=== PATIENT | female | born 1950 | race Two or more races ===

== ENCOUNTER 2024-08-25 06:37 | Day surgery (SDC) | payer MEDICARE, BC, SELFPAY ==
[2024-08-22 11:24] LABS: Basophils # (Auto) 0.1 Thou/mm3 (0.0-0.2); Basophils % (Auto) 1 % (0-2.5); Eosinophils # (Auto) 0.1 Thou/mm3 (0.0-0.5); Eosinophils % (Auto) 1 % (0-10); Hematocrit 37.7 % (36.0-46.0); Hemoglobin 12.9 g/dL (12.0-16.0); Immature Granulocytes % (Auto) 0 % (0-0); Immature Granulocytes Auto 0.04 Thou/mm3 (0.00-0.00); Lymphocytes # (Auto) 3.1 Thou/mm3 (1.0-4.8); Lymphocytes % (Auto) 28 % (10-50); Mean Corpuscular HGB Conc 34.2 g/dl (31.0-37.0); Mean Corpuscular Hemoglobin 30.5 pg (25.0-35.0); Mean Corpuscular Volume 89 fL (80-100); Monocytes # (Auto) 0.6 Thou/mm3 (0.0-0.8); Monocytes % (Auto) 5 % (0-12); Neutrophils # (Auto) 7.1 Thou/mm3 (1.8-7.7); Neutrophils % (Auto) 65 % (37-80); Nucleated Red Blood Cell % 0 /100 WBC (0); Platelet Count 225 Thou/mm3 (140-440); RDW Standard Deviation 48.8 fL (36.4-46.3); Red Blood Count 4.23 Miln/mm3 (4.00-5.20)
[2024-08-22 11:33] LABS: Partial Thromboplastin Time 27.9 Seconds (22.0-36.0); Prothrombin Time 11.1 Seconds (9.0-12.2)
[2024-08-22 11:35] LABS: Anion Gap 8 (7-16); BUN/Creatinine Ratio 15 Ratio (12-20); Blood Urea Nitrogen 12 mg/dL (9-23); Calcium 9.5 mg/dL (8.3-10.6); Carbon Dioxide 28.8 mMol/L (20.0-31.0); Chloride 104 mMol/L (98-107); Creatinine (Component) 0.8 mg/dL (0.6-1.3); Glucose 110 mg/dL (74-106); Osmolality,Calculated 281 (275-295); Potassium 3.2 mMol/L (3.4-5.1); Sodium 141 mMol/L (136-145); eGFR > 60 See Note
[2024-08-25] VITALS (17 sets, daily range): BP systolic 111–165; BP diastolic 62–77; PULSE 59–74; RESP 10–21; TEMP 36.1–36.3; O2SAT 92–97; BMI 28.3
--- NOTE | 2024-08-25 16:17 | ESOP_ITS ---
RE: STEPHEN PRINCE : 1950 DATE OF OPERATION: 08/25/2024 REFERRING PHYSICIAN: Dr. Fatima PROCEDURES PERFORMED: 1. Left heart catheterization. 2. LV angiography. 3. Selective left and right coronary angiography. 4. Selective right femoral arterial angiography. 5. Conscious sedation monitoring. INDICATIONS FOR PROCEDURE: The patient with history of chronic hypertension, history of hyperlipidemia, history of arteriosclerotic heart disease with previous history of multivessel intracoronary stent placement in 2018 and recent recurrence of the symptoms of anginal chest pains and positive adenosine stress Cardiolite myocardial perfusion imaging study. DETAILS OF THE PROCEDURE: After explaining the procedure in detail to the patient and after obtaining a proper consent, patient was given 1 mg of intravenous Versed and 50 mcg of intravenous fentanyl as premedication. The right groin area was prepped with antiseptic solution. Local anesthetic 2% lidocaine was used and right femoral artery was punctured by Seldinger technique and a Hemoclip sheath size 6-[place] was put in the right femoral artery. Through the sheath, a pigtail catheter size 6-[place] was advanced and positioned in the ascending aorta. Aortic pressure was recorded and catheter placed across the aortic valve into the left ventricle. Left ventricular pressure recorded and LV angiography was performed in GONZALEZ view using 36 mL of dye at a rate of 12 mL per second over a period of 3 seconds. After the left ventricular angiography, the pullback pressure recorded from left ventricle into the aorta. The pigtail catheter was exchanged with preformed left coronary Ricardo catheter size 6-Central African JL4, which was advanced with the help of a J-wire and tip positioned over the left coronary ostium. Several views of the left coronary artery were taken and after left coronary angiography, the catheter was exchanged with preformed right coronary Ricardo catheter size 6-[place] African JR4, which was advanced with the help of a J-wire and tip positioned over the right coronary ostium. Three views of the right coronary artery were taken and after the right coronary angiography, the catheter was pulled out and right femoral arterial angiography was performed in GONZALEZ as well as in NAURUAN views as the arterial puncture site was below the bifurcation of the right common femoral artery. Local pressure was applied to obtain hemostasis of the right femoral arterial puncture site. The patient tolerated the procedure very well without any complication. RESULTS OF THE PROCEDURE: The hemodynamic data showed aortic pressure 165/60 with a mean of 103. Left ventricular pressure 164/12. Post-angiography, left ventricular pressure 160/20. There is no gradient noted across the aortic valve on pullback pressure. The left ventricular angiography showed normal-sized left ventricle with normal left ventricular systolic function and left ventricular ejection fraction of 60%. No evidence of segmental left ventricular wall motion abnormalities were noted. No evidence of mitral regurgitation is noted. The coronary angiography showed left main coronary artery is normal. The left anterior descending coronary artery showed patent previously stented site in the mid left anterior descending coronary artery without any residual stenosis. The diagonal and septal branches are normal. Good distal flow in the left anterior descending coronary artery is noted. The left circumflex coronary artery showed patent previously stented midportion without any residual narrowing and good distal flow. The right coronary angiography showed eccentric luminal narrowing in its proximal and midportion with 20% stenosis and patent previously stented mid to distal right coronary artery before the region of the posterior descending branch without any residual stenosis. Good distal flow in the posterior descending branch and LV posterolateral branch of the right coronary artery is noted. The right femoral arterial angiography is normal and arterial puncture site is below the bifurcation of the right common femoral artery. FINAL IMPRESSION OF PROCEDURE: 1. Patent previously stented mid left anterior descending coronary artery, mid circumflex coronary artery and mid to distal right coronary artery and 20% eccentric stenosis in the proximal and mid right coronary artery. 2. Normal sized left ventricle with normal left ventricular systolic function with left ventricular ejection fraction of 60%. 3. Normal right femoral arterial angiography. RECOMMENDATIONS: The patient recommended continuation of medical management for the control of the symptoms as well as coronary risk factor reduction. cc: Vonnie Fatima MD DT: 08:38:17 TT: 16:15:00 Ref: [id number] - TID: [id number]
== END 2024-08-25 14:35 | disposition home or self-care (01) ==
PROVIDERS: PCP Internal Medicine; Referring Provider Internal Medicine Cardiovascular Disease; Visit Provider Internal Medicine Cardiovascular Disease
PROC: (CPT 93458; principal; 2024-08-25 07:30)
DX: I25.118 Atherosclerotic heart disease of native coronary artery with other forms of angina pectoris (principal); I49.9 Cardiac arrhythmia, unspecified; E13.9 Other specified diabetes mellitus without complications; I10 Essential (primary) hypertension; E78.5 Hyperlipidemia, unspecified; Z95.818 Presence of other cardiac implants and grafts
CPT/HCPCS: 93458; 36415; 80048; 85025; 85610; 85730; 93005; 99152; 99153; A4649; C1894; J0171; J0461; J1643; J2250; J2310; J2371; J3010; J3490; Q9967; J1644

== ENCOUNTER → 2024-11-10 | Outpatient (CLI) | payer MEDICARE, BC, SELFPAY ==
[2024-11-10 10:06] LABS: Collection Type, Urine Clean Catch
[2024-11-10 10:49] LABS: Basophils # (Auto) 0.1 Thou/mm3 (0.0-0.2); Basophils % (Auto) 1 % (0-2.5); Eosinophils # (Auto) 0.2 Thou/mm3 (0.0-0.5); Eosinophils % (Auto) 2 % (0-10); Hemoglobin 13.2 g/dL (12.0-16.0); Immature Granulocytes % (Auto) 0 % (0-0); Immature Granulocytes Auto 0.03 Thou/mm3 (0.00-0.00); Lymphocytes # (Auto) 3.4 Thou/mm3 (1.0-4.8); Lymphocytes % (Auto) 34 % (10-50); Mean Corpuscular HGB Conc 33.8 g/dl (31.0-37.0); Mean Corpuscular Hemoglobin 30.4 pg (25.0-35.0); Mean Corpuscular Volume 90 fL (80-100); Monocytes # (Auto) 0.5 Thou/mm3 (0.0-0.8); Monocytes % (Auto) 5 % (0-12); Neutrophils # (Auto) 5.8 Thou/mm3 (1.8-7.7); Neutrophils % (Auto) 58 % (37-80); Nucleated Red Blood Cell % 0 /100 WBC (0); Platelet Count 220 Thou/mm3 (140-440); RDW Standard Deviation 48.5 fL (36.4-46.3); Red Blood Count 4.34 Miln/mm3 (4.00-5.20)
[2024-11-10 10:58] LABS: Creatinine MALB Rnd Ur 52 mg/dL (30-125); Microalbumin, Random Urine < 3 mg/L (0-300)
[2024-11-10 10:58] LABS: Alanine Aminotransferase 14 U/L (10-49); Albumin, Serum 4.3 gm/dL (3.4-4.8); Albumin/Globulin Ratio 2.2 (1.2-2.2); Alkaline Phosphatase 86 U/L (46-116); Anion Gap 9 (7-16); Aspartate Amino Transferase 16 U/L (0-34); BUN/Creatinine Ratio 20 Ratio (12-20); Bilirubin,Total 0.4 mg/dL (0.3-1.2); Blood Urea Nitrogen 16 mg/dL (9-23); Calcium 9.5 mg/dL (8.3-10.6); Calcium (Corrected) 9.5 mg/dL (8.5-10.1); Carbon Dioxide 27.5 mMol/L (20.0-31.0); Chloride 107 mMol/L (98-107); Cholesterol 124 mg/dL (132-200); Creatinine (Component) 0.8 mg/dL (0.6-1.3); Glucose 102 mg/dL (74-106); HDL Cholesterol 42 mg/dL (40-60); LDL Cholesterol,Calculated 65 mg/dL (0-130); Osmolality,Calculated 286 (275-295); Potassium 4.3 mMol/L (3.4-5.1); Sodium 143 mMol/L (136-145); Thyroid Stimulating Hormone 1.98 uIU/mL (0.55-4.78); Total Protein 6.3 gm/dL (5.7-8.2); Triglycerides 85 mg/dL (30-150); Uric Acid 5.3 mg/dL (3.1-7.8); eGFR > 60 See Note
[2024-11-10 11:00] LABS: Vitamin B12 262 pg/mL (211-911); Vitamin D 25 Hydroxy Total 17.2 ng/mL (7.3-40.2)
[2024-11-10 11:12] LABS: Bilirubin,Urine Negative (Negative); Blood,Urine Trace-Intact (Negative); Clarity,Urine Clear (Clear/Hazy); Color,Urine Lt Yellow (Lt Yel-Yel); Glucose, Urine Negative (Negative); Ketones,Urine Negative (Negative); Leukocyte Esterase,Urine Negative (Negative); Nitrite,Urine Negative (Negative); Protein,Urine Negative (Neg - Trace); Specific Gravity,Urine 1.015 (1.001-1.035); Urobilinogen,Urine 0.2 mg/dL (0.0-1.0)
[2024-11-10 11:31] LABS: Glucose Estimated Average 120 mg/dL (80-131); Hemoglobin A1C 5.8 % Hgb (4.8-6.0)
[2024-11-10 11:37] LABS: RBC,Urine 2 /hpf (0-3); Squamous Epithelial Cell,Urine 3 /hpf (0-5); WBC,Urine 2 /hpf (0-5)
== END | disposition home or self-care (01) ==
PROVIDERS: PCP Internal Medicine; Referring Provider Internal Medicine; Visit Provider Internal Medicine Cardiovascular Disease
DX: E03.9 Hypothyroidism, unspecified (principal); I10 Essential (primary) hypertension; E78.5 Hyperlipidemia, unspecified; D51.9 Vitamin B12 deficiency anemia, unspecified; E55.9 Vitamin D deficiency, unspecified
CPT/HCPCS: 36415; 80053; 80061; 81001; 82043; 82306; 82570; 82607; 83036; 84443; 84550; 85025

== ENCOUNTER → 2025-04-06 | Outpatient (CLI) | payer MEDICARE, BC, SELFPAY ==
[2025-04-06 08:09] LABS: Collection Type, Urine Clean Catch
[2025-04-06 08:30] LABS: Basophils # (Auto) 0.1 Thou/mm3 (0.0-0.2); Basophils % (Auto) 1 % (0-2.5); Eosinophils # (Auto) 0.2 Thou/mm3 (0.0-0.5); Eosinophils % (Auto) 2 % (0-10); Hematocrit 39.8 % (36.0-46.0); Hemoglobin 13.6 g/dL (12.0-16.0); Immature Granulocytes Auto 0.03 Thou/mm3 (0.00-0.00); Lymphocytes # (Auto) 3.4 Thou/mm3 (1.0-4.8); Lymphocytes % (Auto) 37 % (10-50); Mean Corpuscular HGB Conc 34.2 g/dl (31.0-37.0); Mean Corpuscular Hemoglobin 30.7 pg (25.0-35.0); Mean Corpuscular Volume 90 fL (80-100); Monocytes # (Auto) 0.5 Thou/mm3 (0.0-0.8); Monocytes % (Auto) 5 % (0-12); Neutrophils # (Auto) 5.1 Thou/mm3 (1.8-7.7); Neutrophils % (Auto) 55 % (37-80); Nucleated Red Blood Cell # 0.00 Thou/mm3 (0.00-0.00); Nucleated Red Blood Cell % 0 /100 WBC (0); Platelet Count 180 Thou/mm3 (140-440); RDW Standard Deviation 47.7 fL (36.4-46.3); Red Blood Count 4.43 Miln/mm3 (4.00-5.20); White Blood Count 9.3 Thou/mm3 (3.6-11.0)
[2025-04-06 08:41] LABS: Creatinine MALB Rnd Ur 72 mg/dL (30-125); Microalbumin, Random Urine < 3 mg/L (0-300)
[2025-04-06 08:47] LABS: Alanine Aminotransferase 12 U/L (10-49); Albumin, Serum 4.2 gm/dL (3.4-4.8); Albumin/Globulin Ratio 1.9 (1.2-2.2); Alkaline Phosphatase 78 U/L (46-116); Anion Gap 7 (7-16); Aspartate Amino Transferase 18 U/L (0-34); BUN/Creatinine Ratio 13 Ratio (12-20); Bilirubin,Total 0.4 mg/dL (0.3-1.2); Blood Urea Nitrogen 10 mg/dL (9-23); Calcium 9.4 mg/dL (8.3-10.6); Calcium (Corrected) 9.4 mg/dL (8.5-10.1); Carbon Dioxide 27.0 mMol/L (20.0-31.0); Cardiac Risk Estimate 2.8 RATIO (3.7-5.6); Chloride 110 mMol/L (98-107); Cholesterol 121 mg/dL (132-200); Creatinine (Component) 0.8 mg/dL (0.6-1.3); Globulin 2.2 gm/dL (2.3-3.5); Glucose 105 mg/dL (74-106); HDL Cholesterol 43 mg/dL (40-60); LDL Cholesterol,Calculated 62 mg/dL (0-130); Osmolality,Calculated 285 (275-295); Potassium 4.5 mMol/L (3.4-5.1); Sodium 144 mMol/L (136-145); Thyroid Stimulating Hormone 1.90 uIU/mL (0.55-4.78); Total Protein 6.4 gm/dL (5.7-8.2); Triglycerides 78 mg/dL (30-150); eGFR > 60 See Note
[2025-04-06 08:48] LABS: Glucose Estimated Average 128 mg/dL (80-131); Hemoglobin A1C 6.1 % Hgb (4.8-6.0)
[2025-04-06 08:55] LABS: Bilirubin,Urine Negative (Negative); Blood,Urine Trace (Negative); Clarity,Urine Clear (Clear/Hazy); Color,Urine Lt-Yellow (Lt Yel-Yel); Glucose, Urine Negative (Negative); Ketones,Urine Negative (Negative); Leukocyte Esterase,Urine Negative (Negative); Nitrite,Urine Negative (Negative); PH,Urine 5.5 (5.0-7.0); Protein,Urine Negative (Neg - Trace); RBC,Urine 1 /hpf (0-3); Specific Gravity,Urine 1.012 (1.001-1.035); Squamous Epithelial Cell,Urine < 1 /hpf (0-5); Urobilinogen,Urine Negative mg/dL (0.0-1.0); WBC,Urine 2 /hpf (0-5)
== END | disposition home or self-care (01) ==
LOC: COPL 07:45
PROVIDERS: PCP Internal Medicine; Referring Provider Internal Medicine Cardiovascular Disease; Visit Provider Internal Medicine
DX: E03.9 Hypothyroidism, unspecified (principal); E78.5 Hyperlipidemia, unspecified; I10 Essential (primary) hypertension
CPT/HCPCS: 36415; 80053; 80061; 81001; 82043; 82570; 83036; 84443; 85025

== ENCOUNTER 2025-05-04 09:45 | Day surgery (SDC) | payer MEDICARE, BC, SELFPAY ==
--- NOTE | 2025-05-01 09:50 | EKG_ITS ---
[facility] Test Date: 2025-05-01 Pat Name: STEPHEN PRINCE Department: Room: - Gender: Female [employer] Applier: MAYCO : 1950 Requested By: Saul Diaz Order Number: [id number] Reading MD: Saul Diaz Measurements Intervals [place] Rate: 57 P: 44 NE: 167 QRS: -3 QRSD: 90 T: 26 QT: 431 QTc: 421 Interpretive Statements SINUS BRADYCARDIA POSSIBLE RIGHT VENTRICULAR CONDUCTION DELAY [RSR (QR) IN V1/V2] MODERATE ST DEPRESSION [0.05+ mV ST DEPRESSION] Compared to ECG 12/14/2018 20:18:44 ST (T wave) deviation now present Sinus rhythm no longer present Incomplete right bundle-branch block no longer present Myocardial infarct finding no longer present /[id number]/[id number]
[2025-05-01 10:49] LABS: Alanine Aminotransferase 10 U/L (10-49); Albumin, Serum 4.2 gm/dL (3.4-4.8); Albumin/Globulin Ratio 2.1 (1.2-2.2); Alkaline Phosphatase 92 U/L (46-116); Anion Gap 6 (7-16); Aspartate Amino Transferase 18 U/L (0-34); BUN/Creatinine Ratio 13 Ratio (12-20); Bilirubin,Total 0.3 mg/dL (0.3-1.2); Blood Urea Nitrogen 10 mg/dL (9-23); Calcium 9.6 mg/dL (8.3-10.6); Calcium (Corrected) 9.6 mg/dL (8.5-10.1); Carbon Dioxide 27.8 mMol/L (20.0-31.0); Chloride 108 mMol/L (98-107); Creatinine (Component) 0.8 mg/dL (0.6-1.3); Globulin 2.0 gm/dL (2.3-3.5); Glucose 91 mg/dL (74-106); Osmolality,Calculated 282 (275-295); Potassium 4.1 mMol/L (3.4-5.1); Sodium 142 mMol/L (136-145); Total Protein 6.2 gm/dL (5.7-8.2); eGFR > 60 See Note
[2025-05-04 10:05] VITALS: BMI 28.7
[2025-05-04 10:28] VITALS: BP 145/74; PULSE 58; RESP 18; TEMP 36.6; O2SAT 97
[2025-05-04] MEDS: RINGERS LACTATED 1000 ML 1,000 ML 125 ML IV (12:57)
[2025-05-04] MEDS: BENZOCAINE 20% (Hurricaine) SPRAY 1 DOSE TOP (13:06)
[2025-05-04 13:20] VITALS: BP 125/68; PULSE 101; RESP 12; TEMP 36.3; O2SAT 100
--- NOTE | 2025-05-04 13:20 | SUR.PHASEII ---
PT ARRIVED TO PACU, REPORT RECEIVED FROM ILANA MCCLURE. PT OPENING EYES AND TALKING BUT DRIFTED BACK TO SLEEP. NO ACUTE DISTRESS NOTED.
[2025-05-04 13:30] VITALS: BP 135/70; PULSE 58; RESP 17; O2SAT 95
[2025-05-04 13:40] VITALS: BP 161/79; PULSE 58; RESP 15; O2SAT 96
--- NOTE | 2025-05-04 13:44 | SUR.PHASEII ---
PT IS MORE AWAKE AND TOLERATE ORAL FLUID INTAKE.
[2025-05-04 13:50] VITALS: BP 154/87; PULSE 54; RESP 19; O2SAT 94
== END 2025-05-04 13:59 | disposition home or self-care (01) ==
PROVIDERS: Anesthesiology; PCP Internal Medicine; Referring Provider Specialist; Visit Provider Specialist
PROC: (CPT 43239; principal; 2025-05-04 10:15)
DX: K22.2 Esophageal obstruction (principal); K20.90 Esophagitis, unspecified without bleeding; Z01.810 Encounter for preprocedural cardiovascular examination; R00.1 Bradycardia, unspecified; K29.50 Unspecified chronic gastritis without bleeding
CPT/HCPCS: 43248; 43239; 36415; 80053; 93005; A4649; C1769; J7120; A9270

== ENCOUNTER → 2025-06-19 | Outpatient (CLI) | payer MEDICARE, BC, SELFPAY ==
[2025-06-19 14:44] LABS: Alanine Aminotransferase 17 U/L (10-49); Albumin, Serum 4.3 gm/dL (3.4-4.8); Alkaline Phosphatase 85 U/L (46-116); Aspartate Amino Transferase 18 U/L (0-34); Bilirubin,Direct < 0.1 mg/dL (0.0-0.3); Bilirubin,Total 0.2 mg/dL (0.3-1.2); Total Protein 6.5 gm/dL (5.7-8.2)
== END | disposition home or self-care (01) ==
LOC: COPL 12:49
PROVIDERS: PCP Internal Medicine; Referring Provider Student in an Organized Health Care Education/Training Program; Visit Provider Student in an Organized Health Care Education/Training Program
DX: B35.1 Tinea unguium (principal)
CPT/HCPCS: 36415; 80076

== ENCOUNTER → 2025-08-03 | Outpatient (CLI) | payer MEDICARE, BC, SELFPAY ==
[2025-08-03 08:58] LABS: Alanine Aminotransferase 13 U/L (10-49); Albumin, Serum 4.5 gm/dL (3.4-4.8); Albumin/Globulin Ratio 2.4 (1.2-2.2); Alkaline Phosphatase 75 U/L (46-116); Anion Gap 7 (7-16); Aspartate Amino Transferase 16 U/L (0-34); BUN/Creatinine Ratio 17 Ratio (12-20); Bilirubin,Total 0.4 mg/dL (0.3-1.2); Blood Urea Nitrogen 15 mg/dL (9-23); Calcium 9.8 mg/dL (8.3-10.6); Calcium (Corrected) 9.8 mg/dL (8.5-10.1); Carbon Dioxide 28.8 mMol/L (20.0-31.0); Cardiac Risk Estimate 2.8 RATIO (3.7-5.6); Chloride 109 mMol/L (98-107); Cholesterol 108 mg/dL (132-200); Creatinine (Component) 0.9 mg/dL (0.6-1.3); Globulin 1.9 gm/dL (2.3-3.5); Glucose 118 mg/dL (74-106); HDL Cholesterol 39 mg/dL (40-60); LDL Cholesterol,Calculated 53 mg/dL (0-130); Osmolality,Calculated 290 (275-295); Potassium 4.4 mMol/L (3.4-5.1); Sodium 145 mMol/L (136-145); Total Protein 6.4 gm/dL (5.7-8.2); Triglycerides 79 mg/dL (30-150); eGFR > 60 See Note
[2025-08-03 09:38] LABS: Glucose Estimated Average 120 mg/dL (80-131); Hemoglobin A1C 5.8 % Hgb (4.8-6.0)
== END | disposition home or self-care (01) ==
LOC: COPL 06:50
PROVIDERS: PCP Internal Medicine; Referring Provider Internal Medicine; Visit Provider Internal Medicine
DX: E78.5 Hyperlipidemia, unspecified (principal); I10 Essential (primary) hypertension; E11.9 Type 2 diabetes mellitus without complications
CPT/HCPCS: 36415; 80053; 80061; 83036